=== PATIENT | male | born 1960 | race Two or more races ===

== ENCOUNTER 2023-10-19 17:34 | Inpatient (IN) | payer OTHER ==
[~2023-10-19] VITALS: Ht 167.6 cm; Wt 88.5 kg
[2023-10-19] MEDS ORDERED: GLUMETZA1000 MG PO (18:57)
[2023-10-19] MEDS ORDERED: ALOGLIPTIN25 MG PO (18:58)
[2023-10-19] MEDS ORDERED: ACETAMINOPHEN 500 MG GEL..CAP PO ONE (20:30)
[2023-10-19 20:47] LABS: URINE APPEARANCE Cloudy; URINE BILIRRUBIN Negative (NEGATIVE); URINE BLOOD Large; URINE COLOR Yellow; URINE LEUKOCYTE Trace; URINE NITRATE Positive; URINE PROTEIN 30 (NEGATIVE); URINE UROBILINOGEN 0.2 E.U./dl
[2023-10-19 20:51] LABS: URINE EPITHELIAL CELLS 2.3 uL (0.0-38.8); URINE RBC 90.9 uL (0.0-20.8); URINE WBC 484.6 uL (0.0-23.2)
[2023-10-19 21:01] LABS: HEMATOCRIT 45.4 % (39.0-48.0); HEMOGLOBIN 15.4 g/dL (13-16.00); MEAN CELL VOLUME 86.7 fL (80.0-100.00); MEAN CORPUSCULAR HEMOGLOBIN 29.4 pg (27.00-32.0); MEAN CORPUSCULAR HGB CONC 33.9 g/dl (32.0-36.0); PLATELET COUNT 214 K/uL (150-450); RED BLOOD COUNT 5.23 M/uL (4.00-6.00)
[2023-10-19 21:23] LABS: CALCIUM 9.5 mg/dL (8.5-10.1); CREATININE SERUM 1.1 mg/dL (0.70-1.30); GFR 67.61; POTASSIUM 3.43 mEq/L (3.5-5.1)
[2023-10-19 21:57] LABS: URINE GLUCOSE >=1000 MG/DL (NEGATIVE)
[2023-10-19 21:58] LABS: URINE YEAST NEGATIVE /hpf
[2023-10-19] MEDS ORDERED: CIPROFLOXACIN IN 5 % DEXTROSE 400 MG/200 ML PIGGYBAG IV ONE (22:00)
[2023-10-19] MEDS ORDERED: 0.9 % SODIUM CHLORIDE 1,000 ML IV ONE (22:15)
[2023-10-19] MEDS ORDERED: INSULIN LISPRO 1,000 UNIT/10 ML UNITS SUBCUTANEO PRN (22:45)
[2023-10-19] MEDS ORDERED: DEXTROSE 50 % IN WATER 0.5 G/ML DISP.SYRIN IV PRN (22:45)
[2023-10-19] MEDS ORDERED: ONDANSETRON HCL 4 MG in 0.9 % SODIUM CHLORIDE 50 ML IV PRN (22:45)
[2023-10-19] MEDS ORDERED: ACETAMINOPHEN 500 MG GEL..CAP PO PRN (22:45)
[2023-10-19] MEDS ORDERED: KETOROLAC TROMETHAMINE 30 MG VIAL IV PRN (22:45)
[2023-10-19] MEDS ORDERED: 0.9 % SODIUM CHLORIDE 1,000 ML IV SCH (22:45)
[2023-10-19] MEDS ORDERED: hydrALAZINE HCL 20 MG VIAL IV PRN (22:45)
[2023-10-20] MEDS ORDERED: ENOXAPARIN SODIUM 40 MG/0.4 ML SYRINGE SUBCUTANEO SCH (09:00)
[2023-10-20] MEDS ORDERED: CIPROFLOXACIN IN 5 % DEXTROSE 200 ML IV SCH (09:00)
[2023-10-20] MEDS ORDERED: FAMOTIDINE/PF 20 MG in 0.9 % SODIUM CHLORIDE 8 ML IV PUSH SCH (09:00)
[2023-10-20] MEDS ORDERED: TAMSULOSIN HCL 0.4 MG CAP PO SCH (13:34)
[2023-10-20 15:04] LABS: HEMATOCRIT 43.2 % (39.0-48.0); HEMOGLOBIN 14.6 g/dL (13-16.00); MEAN CORPUSCULAR HEMOGLOBIN 29.4 pg (27.00-32.0); MEAN CORPUSCULAR HGB CONC 33.7 g/dl (32.0-36.0); PLATELET COUNT 190 K/uL (150-450); RED BLOOD COUNT 4.97 M/uL (4.00-6.00); RED CELL DISTRIBUTION WIDTH 13.7 % (11.5-14.5)
[2023-10-20 15:15] LABS: ERYTHROCYTE SEDIMENTATION RATE 24 mm/hr
[2023-10-20 15:24] LABS: INR 1.1; PARTIAL THROMBOPLASTIN TIME 34.2 SECONDS (22.0-34.0); PROTHROMBIN TIME 11.5 SECONDS (9.0-11.5)
[2023-10-20 15:37] LABS: ALBUMIN 3.5 gm/dL (3.4-5.0); BILIRUBIN TOTAL 0.99 mg/dL (0.3-1.2); BILIRUBIN,CONJUGATED 0.31 mg/dL (0.0-0.2); BILIRUBIN,UNCONJUGATED 0.68 mg/dL (0.0-0.6); CALCIUM 8.9 mg/dL (8.5-10.1); CHOL HDL RATIO 2.8 (0-5.0); CREATININE SERUM 1.03 mg/dL (0.70-1.30); GFR 72.94; GLOBULINA 3.8 G/DL (2.4-3.5); POTASSIUM 3.62 mEq/L (3.5-5.1); TOTAL PROTEIN 7.3 gm/dL (6.4-8.2)
[2023-10-20 15:42] LABS: C-REACTIVE PROTEIN 22.1 MG/DL (0.00-0.29)
[2023-10-20 15:52] LABS: URINE BILIRRUBIN Negative (NEGATIVE); URINE BLOOD Large; URINE COLOR Yellow; URINE LEUKOCYTE Trace; URINE NITRATE Negative; URINE PROTEIN Negative (NEGATIVE)
[2023-10-20 15:53] LABS: URINE BACTERIA 56.6 uL (0.0-1933); URINE EPITHELIAL CELLS 2.4 uL (0.0-38.8); URINE RBC 122.3 uL (0.0-20.8); URINE WBC 118.5 uL (0.0-23.2)
[2023-10-20 16:08] LABS: URINE APPEARANCE CLEAR; URINE CRYSTALS FEW /HPF; URINE GLUCOSE >=1000 MG/DL (NEGATIVE)
[2023-10-22 06:58] LABS: HEMATOCRIT 39.2 % (39.0-48.0); HEMOGLOBIN 13.2 g/dL (13-16.00); MEAN CELL VOLUME 87.2 fL (80.0-100.00); MEAN CORPUSCULAR HEMOGLOBIN 29.3 pg (27.00-32.0); MEAN CORPUSCULAR HGB CONC 33.6 g/dl (32.0-36.0); PLATELET COUNT 205 K/uL (150-450); RED CELL DISTRIBUTION WIDTH 13.6 % (11.5-14.5)
[2023-10-22 07:15] LABS: ALBUMIN 2.8 gm/dL (3.4-5.0); BILIRUBIN TOTAL 0.96 mg/dL (0.3-1.2); CALCIUM 8.3 mg/dL (8.5-10.1); CREATININE SERUM 0.77 mg/dL (0.70-1.30); GFR 102.04; POTASSIUM 3.83 mEq/L (3.5-5.1); TOTAL PROTEIN 5.8 gm/dL (6.4-8.2)
[2023-10-22] MEDS ORDERED: MICONAZOLE NITRATE 92 GM CREAM.GM. TOP SCH (09:00)
[2023-10-22] MEDS ORDERED: CLOTRIMAZOLE 15 GM TUBE TOP SCH (09:00)
[2023-10-22] MEDS ORDERED: FAMOtidine 20 MG TABLET PO SCH (21:00)
[2023-10-23] MEDS ORDERED: CIPRO500 MG PO (09:36)
[2023-10-23] MEDS ORDERED: TAMS0.4C PO (09:37)
== END 2023-10-23 11:19 | disposition home or self-care (01) | DRG 690 ==
LOC: ER 17:35 → MEDJ 22:58
PROVIDERS: General Practice; ADMIT Internal Medicine; ATTEND Internal Medicine
PROC: BW21ZZZ Computerized Tomography (CT Scan) of Abdomen and Pelvis (ICD-10-PCS; principal; 2023-10-19)
DX: N39.0 Urinary tract infection, site not specified (principal); N41.9 Inflammatory disease of prostate, unspecified; Z20.822 Contact with and (suspected) exposure to COVID-19